=== PATIENT | female | born 1995 | race Caucasian/White ===

== ENCOUNTER 2017-01-25 16:35 | Emergency (ER) | payer BC ==
[2017-01-25 16:55] VITALS: RESP 18
--- NOTE | 2017-01-25 17:25 | ED ---
GI Bleed HPI - General Chief complaint: GI Bleed Stated complaint: Blood in stool x5 days Time Seen by Provider: 01/25/17 16:57 Source: patient, RN notes reviewed, old records reviewed Mode of arrival: ambulatory Limitations: no limitations - History of Present Illness Initial comments: This is a 21-year-old female presenting to the emergency department to complaint of blood with each bowel movement for the past 5 days. Patient reports that she's had this happen before and was seen by her primary care provider and a surgeon. Patient reports that they sat decided against doing any colonoscopies. Patient states that she has no abdominal pain. Patient just reports bright red blood with each bowel movement. She was seen at an urgent care and they noticed no blood at this time. Patient reports that she called her primary care provider who told her to come to the emergency department. She denies any vomiting, fever or chills. Denies any difficulty urinating or with bowel movements. She reports that they have been normal, denies any diarrhea. She reports that a week ago she did notice that her bowels were more "mucousy". - Related Data Home Medications Medication Instructions Recorded Confirmed No Known Home Medications [No 01/25/17 01/25/17 Known Home Medications] Allergies Allergy/AdvReac Type Severity Reaction Status Date / Time No Known Allergies Allergy Verified 01/25/17 17:54 Review of Systems ROS Statement: Those systems with pertinent positive or pertinent negative responses have been documented in the HPI. ROS Other: All systems not noted in ROS Statement are negative. Past Medical History Past Medical History: No Reported History History of Any Multi-Drug Resistant Organisms: None Reported Additional Past Surgical History / Comment(s): tonsilectomy Past Psychological History: No Psychological Hx Reported Smoking Status: Never smoker Past Alcohol Use History: Occasional Past Drug Use History: None Reported General Exam - General Exam Comments Initial Comments: This is a well-appearing 21-year-old female. Patient does not appear to be in any acute distress. Temperature 98.9. Pulse of 86 bpm. Respirations 18 breaths per minute. BP is 135/80. Pulse ox 99% on room air. Limitations: no limitations General appearance: alert, in no apparent distress Head exam: Present: atraumatic, normocephalic, normal inspection Eye exam: Present: normal appearance, PERRL, EOMI. Absent: scleral icterus, conjunctival injection, periorbital swelling ENT exam: Present: normal exam, mucous membranes moist Neck exam: Present: normal inspection. Absent: tenderness, meningismus, lymphadenopathy Respiratory exam: Present: normal lung sounds bilaterally. Absent: respiratory distress, wheezes, rales, rhonchi, stridor Cardiovascular Exam: Present: regular rate, normal rhythm, normal heart sounds. Absent: systolic murmur, diastolic murmur, rubs, gallop, clicks GI/Abdominal exam: Present: soft, normal bowel sounds. Absent: distended, tenderness, guarding, rebound, rigid Rectal exam: Present: normal inspection, normal rectal tone, decreased rectal tone Extremities exam: Present: normal inspection, full ROM, normal capillary refill. Absent: tenderness, pedal edema, joint swelling, calf tenderness Back exam: Present: normal inspection Neurological exam: Present: alert, oriented X3, CN II-XII intact Psychiatric exam: Present: normal affect, normal mood Skin exam: Present: warm, dry, intact, normal color. Absent: rash Course Vital Signs 01/25/17 16:52 Temperature 98.9 F Pulse Rate 76 Respiratory 18 Rate Blood Pressure 135/80 O2 Sat by Pulse 99 Oximetry Medical Decision Making - Medical Decision Making This is a 21-year-old female presenting to the emergency department to complaint of blood with each bowel movement for the past 5 days. Patient reports that she's had this happen before and was seen by her primary care provider and a surgeon. Patient reports that they sat decided against doing any colonoscopies. Patient states that she has no abdominal pain. Patient just reports bright red blood with each bowel movement. She was seen at an urgent care and they noticed no blood at this time. Patient reports that she called her primary care provider who told her to come to the emergency department. Patient is abdomen is nontender. Blood work was reviewed and negative for any acute process. Hemoccult negative. Patient advised to follow-up with GI specialist. Advised clear liquid diet. Patient understands treatment plan will comply. Return parameters were discussed. - Lab Data Result diagrams: 01/25/17 17:20 01/25/17 17:20 Lab Results 01/25/17 01/25/17 01/25/17 Range/Units 17:20 17:20 17:20 WBC 8.4 (3.8-10.6) k/uL RBC 4.54 (3.80-5.40) m/uL Hgb 13.4 (11.4-16.0) gm/dL Hct 41.0 (34.0-46.0) % MCV 90.3 (80.0-100.0) fL MCH 29.5 (25.0-35.0) pg MCHC 32.7 (31.0-37.0) g/dL RDW 13.5 (11.5-15.5) % Plt Count 213 (150-450) k/uL Neutrophils % 62 % Lymphocytes % 25 % Monocytes % 7 % Eosinophils % 3 % Basophils % 1 % Neutrophils # 5.3 (1.3-7.7) k/uL Lymphocytes # 2.1 (1.0-4.8) k/uL Monocytes # 0.6 (0-1.0) k/uL Eosinophils # 0.2 (0-0.7) k/uL Basophils # 0.1 (0-0.2) k/uL PT 11.2 (9.0-12.0) sec INR 1.1 (<1.1) APTT 28.4 (22.0-30.0) sec Sodium 139 (137-145) mmol/L Potassium 3.9 (3.5-5.1) mmol/L Chloride 103 (98-107) mmol/L Carbon Dioxide 26 (22-30) mmol/L Anion Gap 10 mmol/L BUN 9 (7-17) mg/dL Creatinine 0.82 (0.52-1.04) mg/dL Est GFR (MDRD) Af Amer >60 (>60 ml/min/1.73 sqM) Est GFR (MDRD) Non-Af >60 (>60 ml/min/1.73 sqM) Glucose 90 (74-99) mg/dL Calcium 9.7 (8.4-10.2) mg/dL Magnesium 2.1 (1.6-2.3) mg/dL Total Bilirubin 0.5 (0.2-1.3) mg/dL AST 22 (14-36) U/L ALT 22 (9-52) U/L Alkaline Phosphatase 91 (38-126) U/L Total Protein 7.5 (6.3-8.2) g/dL Albumin 4.5 (3.5-5.0) g/dL Lipase 75 (23-300) U/L Stool Occult Blood (Negative) 01/25/17 Range/Units 17:30 WBC (3.8-10.6) k/uL RBC (3.80-5.40) m/uL Hgb (11.4-16.0) gm/dL Hct (34.0-46.0) % MCV (80.0-100.0) fL MCH (25.0-35.0) pg MCHC (31.0-37.0) g/dL RDW (11.5-15.5) % Plt Count (150-450) k/uL Neutrophils % % Lymphocytes % % Monocytes % % Eosinophils % % Basophils % % Neutrophils # (1.3-7.7) k/uL Lymphocytes # (1.0-4.8) k/uL Monocytes # (0-1.0) k/uL Eosinophils # (0-0.7) k/uL Basophils # (0-0.2) k/uL PT (9.0-12.0) sec INR (<1.1) APTT (22.0-30.0) sec Sodium (137-145) mmol/L Potassium (3.5-5.1) mmol/L Chloride (98-107) mmol/L Carbon Dioxide (22-30) mmol/L Anion Gap mmol/L BUN (7-17) mg/dL Creatinine (0.52-1.04) mg/dL Est GFR (MDRD) Af Amer (>60 ml/min/1.73 sqM) Est GFR (MDRD) Non-Af (>60 ml/min/1.73 sqM) Glucose (74-99) mg/dL Calcium (8.4-10.2) mg/dL Magnesium (1.6-2.3) mg/dL Total Bilirubin (0.2-1.3) mg/dL AST (14-36) U/L ALT (9-52) U/L Alkaline Phosphatase (38-126) U/L Total Protein (6.3-8.2) g/dL Albumin (3.5-5.0) g/dL Lipase (23-300) U/L Stool Occult Blood Negative (Negative) Disposition Clinical Impression: History of GI bleed Disposition: HOME SELF-CARE Condition: Good Instructions: Gastrointestinal Bleeding (ED) Additional Instructions: Patient was clear liquid diet for the next 2-3 days. Return to the emergency department if any alarming signs or symptoms occur. Follow-up with a GI specialist. Referrals: Alice Marcelino MD [Primary Care Provider] - 1-2 days Marisol Byrd MD [STAFF PHYSICIAN] - 1-2 days Time of Disposition: 18:26
[2017-01-25 17:27] LABS: Basophils # (A) 0.1 k/uL (0-0.2); Basophils % (A) 1 %; CH 29.9; CHCM 33.3; Eosinophils # (A) 0.2 k/uL (0-0.7); Eosinophils % (A) 3 %; HDW 2.27; HGB 13.4 gm/dL (11.4-16.0); Luc # (Auto) 0.16; Luc % (Auto) 2; Lymphocytes # (A) 2.1 k/uL (1.0-4.8); Lymphocytes % (A) 25 %; MCH 29.5 pg (25.0-35.0); MCHC 32.7 g/dL (31.0-37.0); MCV 90.3 fL (80.0-100.0); Mean Platelet Volume 8.3; Monocytes # (A) 0.6 k/uL (0-1.0); Monocytes % (A) 7 %; Neutrophils # (A) 5.3 k/uL (1.3-7.7); Neutrophils % (A) 62 %; RBC 4.54 m/uL (3.80-5.40); RDW 13.5 % (11.5-15.5); WBC 8.4 k/uL (3.8-10.6); WBC (Perox) 8.21
[2017-01-25 17:36] LABS: INR 1.1 (<1.1); Partial Thromboplastin Time 28.4 sec (22.0-30.0); Prothrombin Time 11.2 sec (9.0-12.0)
[2017-01-25 17:43] LABS: ALT 22 U/L (9-52); AST 22 U/L (14-36); Alkaline Phosphatase 91 U/L (38-126); Anion Gap 10 mmol/L; Blood Urea Nitrogen 9 mg/dL (7-17); Calcium 9.7 mg/dL (8.4-10.2); Carbon Dioxide 26 mmol/L (22-30); Chloride 103 mmol/L (98-107); Glucose 90 mg/dL (74-99); Magnesium 2.1 mg/dL (1.6-2.3); Non-African American GFR(MDRD) >60 (>60 ml/min/1.73 sqM); Potassium 3.9 mmol/L (3.5-5.1); Sodium 139 mmol/L (137-145); Total Bilirubin 0.5 mg/dL (0.2-1.3); Total Protein 7.5 g/dL (6.3-8.2)
[2017-01-25 18:40] VITALS: BP 124/65; PULSE 69; TEMP 98.1
== END 2017-01-25 18:40 | disposition home or self-care (01) ==
LOC: EC 16:35
DX: K92.2 Gastrointestinal hemorrhage, unspecified (principal)
CPT/HCPCS: 36415; 80053; 82272; 83690; 83735; 85025; 85610; 85730; 99285

== ENCOUNTER 2017-03-14 12:46 | Day surgery (SDC) | payer BC ==
[2017-03-10 18:08] VITALS: BMI 26.6
[~2017-03-14 12:46] MED LIST: LACTATED RINGERS 1,000 ML IV SCH
[2017-03-14 13:18] VITALS: TEMP 97.5
[2017-03-14] MEDS ORDERED: LIDOCAINE 1% 20 ML VIAL (10MG/ML) FOR IV START INTRADERMA ONE (13:20)
[2017-03-14] MEDS ORDERED: PROPOFOL 10 MG/ML 20 ML VIAL IV ONE (13:51)
[2017-03-14] MEDS ORDERED: MIDAZOLAM 2 MG/2 ML VIAL ONE (13:51)
[2017-03-14] MEDS ORDERED: LIDOCAINE 1% INJ 10MG/ML (20 ML MDV) ONE (13:51)
[2017-03-14 14:12] VITALS: RESP 18
--- NOTE | 2017-03-14 14:22 | P.PCN ---
Date of Procedure: 03/14/17 Preoperative Diagnosis: Postoperative Diagnosis: Procedure(s) Performed: Procedure: Total colonoscopy. Preoperative diagnosis: Rectal bleeding and family history of colon cancer. Postoperative diagnosis: Examination within normal limits. Preparation: HalfLytely prep. Sedation: Was provided by anesthesia. Brief clinical history: The patient is a 21-year-old female who was evaluated in the office last month for complaints of bleeding that she had around the middle of January that lasted around 2 weeks or so. The patient has had no bleeding since. There is family history of colon cancer in her mother who passed in her mid 40s. The patient used to be constipated but has been doing well for the last year or so. This evaluation is to assess for inflammatory bowel disease or neoplasia or other pathology. Procedure: With the patient on her left lateral decubitus position and after informed consent and adequate sedation, the perianal area was inspected and it did not show any fissures or fistulas. There were no masses felt on digital rectal examination. The Olympus CFQ 160L endoscope was then inserted in the rectum in the usual fashion and advanced to the cecum. I intubated the ileocecal valve and examined the terminal ileum. Terminal ileum and colon appeared healthy with no edema, erythema, friability, ulceration, exudation or spontaneous bleeding. No polyps or tumors were seen. No diverticular disease or other pathology. I retroflexed the endoscope in the rectum before the endoscope was withdrawn. The patient tolerated the procedure well. Plan: The patient was reassured. She will follow-up with you as planned and further plans can be made based on her course. In light of the family history of colon cancer I am recommending repeat exam at age 39. Implants: Indications for Procedure: Operative Findings: Description of Procedure:
[2017-03-14 14:33] VITALS: BP 100/86; PULSE 78
== END 2017-03-14 14:40 | disposition home or self-care (01) ==
LOC: ORWHC2ENDO 12:46
DX: K62.5 Hemorrhage of anus and rectum (principal); Z80.0 Family history of malignant neoplasm of digestive organs
CPT/HCPCS: 45378; 81025

== ENCOUNTER → 2018-02-23 | Outpatient (CLI) | payer BC ==
[2018-02-24 00:52] LABS: Hepatitis A Antibody IgM Non-Reactive (Non-Reactive); Hepatitis B Core IgM Non-Reactive (Non-Reactive)
== END | disposition home or self-care (01) ==
LOC: LABWHC1 15:05
PROVIDERS: ATTEND Family Medicine
DX: Z72.51 High risk heterosexual behavior (principal)
CPT/HCPCS: 36415; 80074

== ENCOUNTER 2018-05-21 06:31 | Emergency (ER) | payer BC ==
[2018-05-21] MEDS ORDERED: SODIUM CHLORIDE 0.9% 1,000 ML IV STA (06:52)
[2018-05-21] MEDS ORDERED: ONDANSETRON 4 MG/2 ML VIAL IVP STA (06:52)
[2018-05-21] MEDS ORDERED: KETOROLAC 30 MG/ML 1 ML VIAL IVP STA (06:52)
--- NOTE | 2018-05-21 06:55 | ED ---
Abdominal Pain HPI - General Chief Complaint: Abdominal Pain Stated Complaint: Abd Pain, Nausea Time Seen by Provider: 05/21/18 06:52 Source: patient, RN notes reviewed Mode of arrival: ambulatory Limitations: no limitations - History of Present Illness Initial Comments: This is a 22-year-old female sent emergency Department chief complaint of abdominal pain. Patient states it started on Tuesday and has worsened it. Patient states it any much diffusely but started her lower abdomen. Patient did admit that she started on Valtrex on for herpes outbreak. This was a primary outbreak. Patient states she has no abnormal vaginal bleeding or vaginal discharge. She states that she just had her menstrual cycle and is not at this time. Patient states that she's had nausea no vomiting no diarrhea no constipation. Patient states she just does not feel well. She states that she felt that she had a fever at home. - Related Data Previous Rx's Medication Instructions Recorded Sulfamethox-Tmp 800-160Mg [Bactrim 1 each PO Q12HR #14 tab 05/21/18 Ds] Allergies Allergy/AdvReac Type Severity Reaction Status Date / Time No Known Allergies Allergy Verified 05/21/18 06:37 Review of Systems ROS Statement: Those systems with pertinent positive or pertinent negative responses have been documented in the HPI. ROS Other: All systems not noted in ROS Statement are negative. Past Medical History Past Medical History: GI Bleed Additional Past Medical History / Comment(s): RECTAL BLEEDING 01/21-02/03/17, genital herpes History of Any Multi-Drug Resistant Organisms: None Reported Past Surgical History: Tonsillectomy Additional Past Surgical History / Comment(s): EXC WISDOM TEETH Past Anesthesia/Blood Transfusion Reactions: Family History of Problems w/ Anesthesia Additional Past Anesthesia/Blood Transfusion Reaction / Comment(s): FATHER GETS COMBATIVE. Past Psychological History: No Psychological Hx Reported Smoking Status: Never smoker Past Alcohol Use History: Occasional Past Drug Use History: None Reported - Past Family History Mother Family Medical History: Cancer Additional Family Medical History / Comment(s): COLO-RECTAL CA. Father Family Medical History: Deep Vein Thrombosis (DVT) General Exam Limitations: no limitations General appearance: alert, in no apparent distress Head exam: Present: atraumatic, normocephalic, normal inspection Neck exam: Present: normal inspection, full ROM. Absent: tenderness, meningismus, lymphadenopathy Respiratory exam: Present: normal lung sounds bilaterally. Absent: respiratory distress, wheezes, rales, rhonchi, stridor Cardiovascular Exam: Present: regular rate, normal rhythm, normal heart sounds. Absent: systolic murmur, diastolic murmur, rubs, gallop, clicks GI/Abdominal exam: Present: soft, tenderness ([id number] lower abdominal tenderness with generalized mild tenderness), normal bowel sounds. Absent: distended, guarding, rebound, rigid Back exam: Absent: CVA tenderness (R), CVA tenderness (L) Skin exam: Present: warm, dry, intact, normal color. Absent: rash Course Vital Signs 05/21/18 05/21/18 06:37 08:07 Temperature 100 F H Pulse Rate 88 61 Respiratory 18 20 Rate Blood Pressure 108/60 101/72 O2 Sat by Pulse 100 96 Oximetry Medical Decision Making - Medical Decision Making 22-year-old female presents emergency from for abdominal discomfort. Patient does have some abdominal cramping related to taking her antivirals medication. Patient is found have urinary tract infection. Patient was started on antibiotics initial dose of IV airbags given emergency Department. Patient will be discharged on Bactrim advised to increase her fluid intake and return for any worsening symptoms. - Lab Data Result diagrams: 05/21/18 07:18 05/21/18 07:18 Lab Results 05/21/18 05/21/18 05/21/18 Range/Units 06:57 06:57 07:18 WBC (3.8-10.6) k/uL RBC (3.80-5.40) m/uL Hgb (11.4-16.0) gm/dL Hct (34.0-46.0) % MCV (80.0-100.0) fL MCH (25.0-35.0) pg MCHC (31.0-37.0) g/dL RDW (11.5-15.5) % Plt Count (150-450) k/uL Neutrophils % % Lymphocytes % % Monocytes % % Eosinophils % % Basophils % % Neutrophils # (1.3-7.7) k/uL Lymphocytes # (1.0-4.8) k/uL Monocytes # (0-1.0) k/uL Eosinophils # (0-0.7) k/uL Basophils # (0-0.2) k/uL Sodium 141 (137-145) mmol/L Potassium 4.8 (3.5-5.1) mmol/L Chloride 106 (98-107) mmol/L Carbon Dioxide 25 (22-30) mmol/L Anion Gap 10 mmol/L BUN 12 (7-17) mg/dL Creatinine 0.97 (0.52-1.04) mg/dL Est GFR (CKD-EPI)AfAm >90 (>60 ml/min/1.73 sqM) Est GFR (CKD-EPI)NonAf 83 (>60 ml/min/1.73 sqM) Glucose 119 H (74-99) mg/dL Calcium 9.0 (8.4-10.2) mg/dL Total Bilirubin 0.8 (0.2-1.3) mg/dL AST 22 (14-36) U/L ALT 16 (9-52) U/L Alkaline Phosphatase 83 (38-126) U/L Total Protein 7.2 (6.3-8.2) g/dL Albumin 3.8 (3.5-5.0) g/dL Amylase 38 (30-110) U/L Lipase 29 (23-300) U/L Urine Color Yellow Urine Appearance Cloudy H (Clear) Urine pH 6.0 (5.0-8.0) Ur Specific [place] 1.028 (1.001-1.035) Urine Protein 1+ H (Negative) Urine Glucose (UA) Negative (Negative) Urine Ketones Negative (Negative) Urine Blood Negative (Negative) Urine Nitrite Negative (Negative) Urine Bilirubin Negative (Negative) Urine Urobilinogen 2.0 (<2.0) mg/dL Ur Leukocyte Esterase Large H (Negative) Urine RBC 5 (0-5) /hpf Urine WBC 30 H (0-5) /hpf Ur Squamous Epith Cells 9 H (0-4) /hpf Urine Bacteria Rare H (None) /hpf Urine Mucus Many H (None) /hpf Urine HCG, Qual Not Detected (Not Detectd) 05/21/18 Range/Units 07:18 WBC 11.9 H (3.8-10.6) k/uL RBC 4.80 (3.80-5.40) m/uL Hgb 12.9 (11.4-16.0) gm/dL Hct 40.4 (34.0-46.0) % MCV 84.2 (80.0-100.0) fL MCH 26.8 (25.0-35.0) pg MCHC 31.8 (31.0-37.0) g/dL RDW 15.2 (11.5-15.5) % Plt Count 212 (150-450) k/uL Neutrophils % 88 % Lymphocytes % 7 % Monocytes % 4 % Eosinophils % 0 % Basophils % 0 % Neutrophils # 10.5 H (1.3-7.7) k/uL Lymphocytes # 0.9 L (1.0-4.8) k/uL Monocytes # 0.5 (0-1.0) k/uL Eosinophils # 0.0 (0-0.7) k/uL Basophils # 0.0 (0-0.2) k/uL Sodium (137-145) mmol/L Potassium (3.5-5.1) mmol/L Chloride (98-107) mmol/L Carbon Dioxide (22-30) mmol/L Anion Gap mmol/L BUN (7-17) mg/dL Creatinine (0.52-1.04) mg/dL Est GFR (CKD-EPI)AfAm (>60 ml/min/1.73 sqM) Est GFR (CKD-EPI)NonAf (>60 ml/min/1.73 sqM) Glucose (74-99) mg/dL Calcium (8.4-10.2) mg/dL Total Bilirubin (0.2-1.3) mg/dL AST (14-36) U/L ALT (9-52) U/L Alkaline Phosphatase (38-126) U/L Total Protein (6.3-8.2) g/dL Albumin (3.5-5.0) g/dL Amylase (30-110) U/L Lipase (23-300) U/L Urine Color Urine Appearance (Clear) Urine pH (5.0-8.0) Ur Specific [place] (1.001-1.035) Urine Protein (Negative) Urine Glucose (UA) (Negative) Urine Ketones (Negative) Urine Blood (Negative) Urine Nitrite (Negative) Urine Bilirubin (Negative) Urine Urobilinogen (<2.0) mg/dL Ur Leukocyte Esterase (Negative) Urine RBC (0-5) /hpf Urine WBC (0-5) /hpf Ur Squamous Epith Cells (0-4) /hpf Urine Bacteria (None) /hpf Urine Mucus (None) /hpf Urine HCG, Qual (Not Detectd) Disposition Clinical Impression: Urinary tract infection, Abdominal cramping Disposition: HOME SELF-CARE Condition: Stable Instructions: Urinary Tract Infection in Women (DC) Additional Instructions: Please return to the Emergency Department if symptoms worsen or any other concerns. Prescriptions: Sulfamethox-Tmp 800-160Mg [Bactrim Ds] 1 each PO Q12HR #14 tab Is patient prescribed a controlled substance at d/c from ED?: No Referrals: Alice Marcelino MD [Primary Care Provider] - 1-2 days Time of Disposition: 08:29
[2018-05-21 07:53] LABS: Basophils % (A) 0 %; Eosinophils % (A) 0 %; HCT 40.4 % (34.0-46.0); HGB 12.9 gm/dL (11.4-16.0); Lymphocytes # (A) 0.9 k/uL (1.0-4.8); Lymphocytes % (A) 7 %; MCH 26.8 pg (25.0-35.0); MCHC 31.8 g/dL (31.0-37.0); MCV 84.2 fL (80.0-100.0); Monocytes # (A) 0.5 k/uL (0-1.0); Monocytes % (A) 4 %; Neutrophils # (A) 10.5 k/uL (1.3-7.7); Neutrophils % (A) 88 %; Platelet Count 212 k/uL (150-450); RDW 15.2 % (11.5-15.5); WBC 11.9 k/uL (3.8-10.6)
[2018-05-21 07:59] LABS: Appearance,Urine Cloudy (Clear); Bacteria,Urine Rare /hpf; Bilirubin,Urine Negative (Negative); Blood,Urine Negative (Negative); Color,Urine Yellow; Glucose,Urine (UA) Negative (Negative); Ketones,Urine Negative (Negative); Leukocyte Esterase,Urine Large (Negative); Mucus,Urine Many /hpf; Nitrite,Urine Negative (Negative); Protein,Urine 1+ (Negative); RBC,Urine 5 /hpf (0-5); Specific Gravity,Urine 1.028 (1.001-1.035); Squamous Epithelial Cell,Urine 9 /hpf (0-4); WBC,Urine 30 /hpf (0-5)
[2018-05-21 08:00] LABS: ALT 16 U/L (9-52); AST 22 U/L (14-36); Albumin 3.8 g/dL (3.5-5.0); Alkaline Phosphatase 83 U/L (38-126); Amylase 38 U/L (30-110); Anion Gap 10 mmol/L; Blood Urea Nitrogen 12 mg/dL (7-17); Carbon Dioxide 25 mmol/L (22-30); Chloride 106 mmol/L (98-107); Glucose 119 mg/dL (74-99); Lipase 29 U/L (23-300); Potassium 4.8 mmol/L (3.5-5.1); Sodium 141 mmol/L (137-145); Total Bilirubin 0.8 mg/dL (0.2-1.3); Total Protein 7.2 g/dL (6.3-8.2)
[2018-05-21 08:07] VITALS: RESP 20
[2018-05-21] MEDS ORDERED: DICYCLOMINE 20 MG TAB PO STA (08:13)
[2018-05-21] MEDS ORDERED: ONDANSETRON 4 MG ODT STARTER PACK 2 TAB BTL PO STA (08:16)
[2018-05-21 08:43] VITALS: BP 101/61; PULSE 64; TEMP 99
== END 2018-05-21 08:43 | disposition home or self-care (01) ==
LOC: EC 06:31
DX: N39.0 Urinary tract infection, site not specified (principal); R11.0 Nausea; Z80.0 Family history of malignant neoplasm of digestive organs
CPT/HCPCS: 36415; 80053; 82150; 83605; 83690; 85025; 81001; 81025; 87040; 87086; 99284; 96374; 96375 ×2; 96361; J2405; J0696; J1885; S0119

== ENCOUNTER 2018-05-29 01:14 | Emergency (ER) | payer BC ==
--- NOTE | 2018-05-29 01:56 | ED ---
Abdominal Pain HPI - General Chief Complaint: Urogenital Stated Complaint: UTI Time Seen by Provider: 05/29/18 01:30 Source: patient Mode of arrival: ambulatory Limitations: no limitations - History of Present Illness Initial Comments: This patient is 22-year-old woman who presents to be evaluated for abdominal pain. The patient indicates that the pain is mainly in the lower abdomen. She describes it as cramping or aching sensation. Started approximately 10 days ago , the patient was seen here about a week ago being diagnosed with urinary tract infection. She was given course of Bactrim which she completed but states she is not really feeling much better. Patient states that there is some associated nausea no vomiting. She states there was no change in bowel movements until she had taken the Bactrim for a few days and she developed some loose stools. MD Complaint: abdominal pain Onset/Timin -: days(s) Location: LLQ, RLQ, suprapubic Migration to: no migration Severity: moderate Quality: cramping, aching Consistency: constant Improves With: nothing Worsens With: nothing Associated Symptoms: nausea, other (dyspareunia) - Related Data LMP (females 10-50): 3 weeks Patient : No Previous Rx's Medication Instructions Recorded Sulfamethox-Tmp 800-160Mg [Bactrim 1 each PO Q12HR #14 tab 05/21/18 Ds] Allergies Allergy/AdvReac Type Severity Reaction Status Date / Time No Known Allergies Allergy Verified 05/29/18 01:21 Review of Systems ROS Statement: Those systems with pertinent positive or pertinent negative responses have been documented in the HPI. ROS Other: All systems not noted in ROS Statement are negative. Constitutional: Denies: fever, chills ENT: Denies: throat pain Respiratory: Denies: cough, dyspnea Cardiovascular: Denies: chest pain, edema Gastrointestinal: Reports: as per HPI, abdominal pain, nausea. Denies: vomiting , diarrhea, constipation, melena, hematochezia Genitourinary: Reports: as per HPI, dyspareunia. Denies: dysuria, frequency, hematuria, discharge, abnormal menses Musculoskeletal: Denies: back pain Skin: Denies: rash Neurological: Denies: headache Past Medical History Past Medical History: GI Bleed Additional Past Medical History / Comment(s): RECTAL BLEEDING 01/21-6/29/17, genital herpes History of Any Multi-Drug Resistant Organisms: None Reported Past Surgical History: Tonsillectomy Additional Past Surgical History / Comment(s): EXC WISDOM TEETH Past Anesthesia/Blood Transfusion Reactions: Family History of Problems w/ Anesthesia Additional Past Anesthesia/Blood Transfusion Reaction / Comment(s): FATHER GETS COMBATIVE. Past Psychological History: No Psychological Hx Reported Smoking Status: Never smoker Past Alcohol Use History: Occasional Past Drug Use History: None Reported - Past Family History Mother Family Medical History: Cancer Additional Family Medical History / Comment(s): COLO-RECTAL CA. Father Family Medical History: Deep Vein Thrombosis (DVT) General Exam Limitations: no limitations General appearance: alert, in no apparent distress Head exam: Present: atraumatic, normocephalic Eye exam: Present: normal appearance. Absent: scleral icterus, conjunctival injection ENT exam: Present: normal oropharynx Neck exam: Present: normal inspection Respiratory exam: Present: normal lung sounds bilaterally. Absent: respiratory distress, wheezes, rales, rhonchi, stridor Cardiovascular Exam: Present: regular rate, normal rhythm, normal heart sounds. Absent: systolic murmur, diastolic murmur, rubs, gallop GI/Abdominal exam: Present: soft, tenderness (Bilateral lower quadrant without rebound or guarding), normal bowel sounds. Absent: distended, guarding, rebound , rigid, mass, pulsatile mass, hernia External exam: Present: normal external exam. Absent: erythema, swelling, lesions, lacerations, ecchymosis Speculum exam: Absent: erythema, cervical discharge, vaginal bleeding, foreign body By manual exam: Present: cervical motion tenderness, uterine tenderness. Absent : adnexal mass, uterine enlargement Extremities exam: Present: normal inspection, normal capillary refill. Absent: pedal edema, calf tenderness Back exam: Present: normal inspection. Absent: CVA tenderness (R), CVA tenderness (L) Neurological exam: Present: alert Skin exam: Present: warm, dry, intact, normal color Course Vital Signs 05/29/18 05/29/18 01:18 04:07 Temperature 98.2 F 98.0 F Pulse Rate 95 85 Respiratory 18 17 Rate Blood Pressure 115/76 112/78 O2 Sat by Pulse 99 99 Oximetry Medical Decision Making - Lab Data Lab Results 05/29/18 05/29/18 Range/Units 01:50 01:50 Urine Color Yellow Urine Appearance Cloudy H (Clear) Urine pH 6.0 (5.0-8.0) Ur Specific [place] 1.015 (1.001-1.035) Urine Protein Negative (Negative) Urine Glucose (UA) Negative (Negative) Urine Ketones Negative (Negative) Urine Blood Negative (Negative) Urine Nitrite Negative (Negative) Urine Bilirubin Negative (Negative) Urine Urobilinogen <2.0 (<2.0) mg/dL Ur Leukocyte Esterase Negative (Negative) Urine RBC 1 (0-5) /hpf Urine WBC 4 (0-5) /hpf Ur Squamous Epith Cells 11 H (0-4) /hpf Urine Bacteria Rare H (None) /hpf Urine Mucus Occasional H (None) /hpf Urine HCG, Qual Not Detected (Not Detectd) Disposition Clinical Impression: Cervicitis Disposition: HOME SELF-CARE Condition: Fair Instructions: Cervicitis (ED) Additional Instructions: As we discussed, if there is not improvement in her symptoms, follow up for the pelvic ultrasound. Is patient prescribed a controlled substance at d/c from ED?: No Referrals: Alice Marcelino MD [Primary Care Provider] - 1-2 days Lindy Sams DO [Doctor of Osteopathic Medicine] - 1-2 days
[2018-05-29 02:18] LABS: Appearance,Urine Cloudy (Clear); Bacteria,Urine Rare /hpf; Bilirubin,Urine Negative (Negative); Blood,Urine Negative (Negative); Color,Urine Yellow; Glucose,Urine (UA) Negative (Negative); Ketones,Urine Negative (Negative); Leukocyte Esterase,Urine Negative (Negative); Mucus,Urine Occasional /hpf; Nitrite,Urine Negative (Negative); Protein,Urine Negative (Negative); RBC,Urine 1 /hpf (0-5); Specific Gravity,Urine 1.015 (1.001-1.035); Squamous Epithelial Cell,Urine 11 /hpf (0-4); Urobilinogen,Urine <2.0 mg/dL (<2.0); WBC,Urine 4 /hpf (0-5)
[2018-05-29] MEDS ORDERED: AZITHROMYCIN 250 MG TAB PO STA (02:57)
[2018-05-29] MEDS ORDERED: cefTRIAXone 250 MG VIAL IM STA (02:57)
[2018-05-29 04:07] VITALS: BP 112/78; PULSE 85; RESP 17; TEMP 98
[2018-05-30 14:29] LABS: N. gonorrhoeae,PCR Negative (Neg,Equiv); Neisseria Source Vagina
[2018-05-30 14:31] LABS: C. trachomatis,PCR Negative (Neg,Equiv); Chlamydia trachomatis Source Vagina
== END 2018-05-29 04:07 | disposition home or self-care (01) ==
LOC: EC 01:14
DX: N72 Inflammatory disease of cervix uteri (principal); Z32.02 Encounter for pregnancy test, result negative
CPT/HCPCS: 81001; 81025; 87491; 87591; 99284; 96372; J0696